=== PATIENT | male | born 1925 | race Caucasian/White ===

== ENCOUNTER 2016-10-13 08:00 | Outpatient (CLI) | payer OTHER | END 2016-10-13 23:59 | DX: N39.0 Urinary tract infection, site not specified (principal) ==

== ENCOUNTER 2016-10-28 12:00 | Outpatient (CLI) | payer MEDICARE, OTHER | END 2016-10-28 12:01 | DX: N39.0 Urinary tract infection, site not specified (principal); R97.20 Elevated prostate specific antigen [PSA]; N19 Unspecified kidney failure ==

== ENCOUNTER 2016-12-16 10:33 | Outpatient (CLI) | payer MEDICARE, OTHER | END 2016-12-16 10:34 | disposition home or self-care (01) | DX: N39.0 Urinary tract infection, site not specified (principal) ==

== ENCOUNTER 2017-03-05 11:04 | Day surgery (SDC) | payer MEDICARE, OTHER ==
[2017-03-05] MEDS ORDERED: PHENYLEPHRINE 2.5% OPHTH 2 ML DROPS ONE (11:17)
[2017-03-05] MEDS ORDERED: PHENYLEPHRINE 2.5% OPHTH 2 ML DROPS OPTH ONE (11:35)
[2017-03-05] MEDS ORDERED: KETOROLAC 0.45% OPHTH DROPS OPTH ONE (11:35)
[2017-03-05] MEDS ORDERED: CYCLOPENTOLATE 1% OPHTH DROPS 2 ML OPTH ONE (11:35)
[2017-03-05] MEDS ORDERED: PROPARACAINE 0.5% OPHTH DROPS 15 ML OPTH ONE ×2 (11:35→12:29)
[2017-03-05] MEDS ORDERED: LACTATED RINGERS 500 ML IV ONE (11:48)
[2017-03-05] MEDS ORDERED: EPINEPHrine 1 MG/ML AMP IVP ONE (12:26)
[2017-03-05] MEDS ORDERED: BRIMONIDINE 0.2% OPHTH DROPS 5 ML OPTH ONE (12:26)
[2017-03-05] MEDS ORDERED: CHONDR SULF/HYALURONATE SYRINGE IO ONE (12:29)
[2017-03-05] MEDS ORDERED: BSS/LIDOCAINE/EPINEPHRINE 1 ML SYRINGE IO ONE (12:29)
[2017-03-05] MEDS ORDERED: TIMOLOL 0.5% OPHTH DROPS OPTH ONE (12:29)
[2017-03-05] MEDS ORDERED: TRIAMCIN/MOXIFLOX/VANCO 1 ML VIAL IO ONE (12:30)
[2017-03-05] MEDS ORDERED: LIDOCAINE-MPF 2% 5 ML VIAL IM ONE (12:40)
[2017-03-05] MEDS ORDERED: MIDAZOLAM 2 MG/2 ML VIAL IVP ONE (12:40)
[2017-03-05] MEDS ORDERED: PROPOFOL 200 MG/20 ML VIAL IVP ONE (12:40)
[2017-03-05 13:37] VITALS: BP 121/86
--- NOTE | 2017-03-05 14:36 | OPERATIVE REPORT ---
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 Cataract surgery was performed on the left eye by Dr. Carranza on 02/20/2004. 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 Cataract surgery was performed on the left eye by Dr. Carranza on 02/20/2004. NAME OF PROCEDURE: Phacoemulsification with posterior chamber intraocular lens implant, right eye. SURGEON: Ishmael Moss MD ANESTHESIA: Monitored anesthesia care. COMPLICATIONS: None. OPERATIVE INDICATIONS: This is an 89-year-old man with progressive vision loss in the right eye due to 4+ nuclear sclerotic cataract. Best corrected visual acuity was 20/125 in the right eye. Indications for surgery were overall decrease in vision, difficulty seeing words on the computer screen, difficulty reading, difficulty seeing words and game scores on TV, difficulty seeing street signs, difficulty driving in low light or at night, difficulty driving at night because of headlights from other vehicles, difficulty with glare or bright lights in any situation, difficulty tracking a golf ball and decreased acuity with firearms. He was consented at length concerning the risks and benefits of cataract surgery after which he expressed a desire to proceed with surgery. OPERATIVE PROCEDURE: The patient was taken into OR #2 and placed under monitored anesthesia care. A surgical time-out was conducted confirming correct patient, correct procedure and correct surgical site. He was placed on the LenSx laser and his eye docked to the laser interface. The laser performed the phaco wounds and arcuate keratotomy incisions. He was then moved to the operating microscope, given topical anesthesia, and prepped and draped in the usual sterile fashion. The eye was entered at the 12 and 9 o'clock positions. Intracameral Shugarcaine was injected into the anterior chamber followed by Viscoat. A Malyugin ring was introduced in the anterior chamber and engaged the pupil at 4 points. Once the pupil was dilated, a curvilinear capsulorrhexis was created using capsulorrhexis forceps. The nucleus was hydrodissected and phacoemulsified. The cortex was evacuated using automated infusion aspiration. Provisc was injected into the capsular bag and a 15.0 diopter toric intraocular lens was inserted into the bag and rotated to axis 0.10. Once the lens was verified to be in good position, I/A was used to evacuate the viscoelastic materials from the capsular bag. Then more Viscoat was injected into the anterior chamber in order to remove the Malyugin ring from the pupil margin and out of the anterior chamber. I/A was then used again to remove viscoelastic materials from the anterior chamber. The eye was inflated to physiologic pressure using balanced salt solution and found to be water tight. Approximately 0.8 mL of a mixture of triamcinolone, moxifloxacin, and vancomycin was injected subconjunctivally in the superior quadrant for infection and inflammation prophylaxis. The wounds were then verified again to be watertight but I was unable to verify the position of the lens as the pupil had come down and covered the toric lens markers. The patient was taken from the operating room in good condition and given postoperative instructions. JOB #: [id number] EXT JOB #:[id number] SAI
== END 2017-03-05 11:05 | disposition home or self-care (01) ==
LOC: SDS 11:04
PROVIDERS: ATTEND Ophthalmology
PROC: 08RJ3JZ Replacement of Right Lens with Synthetic Substitute, Percutaneous Approach (ICD-10-PCS; principal; 2017-03-05 12:00)
DX: H25.11 Age-related nuclear cataract, right eye (principal); H21.81 Floppy iris syndrome; E03.9 Hypothyroidism, unspecified; I50.9 Heart failure, unspecified; I13.2 Hypertensive heart and chronic kidney disease with heart failure and with stage 5 chronic kidney disease, or end stage renal disease; N18.5 Chronic kidney disease, stage 5; N40.0 Benign prostatic hyperplasia without lower urinary tract symptoms; Z99.2 Dependence on renal dialysis; Z87.891 Personal history of nicotine dependence; Z79.82 Long term (current) use of aspirin
CPT/HCPCS: 66982; A9270; V2632

== ENCOUNTER 2017-06-24 08:00 | Outpatient (CLI) | payer MEDICARE, OTHER | END 2017-06-24 08:01 | disposition home or self-care (01) | LOC: LAB.R 08:00 | PROVIDERS: ATTEND Family Medicine | DX: N39.0 Urinary tract infection, site not specified (principal) | CPT/HCPCS: 87086 ==

== ENCOUNTER 2017-07-30 08:00 | Outpatient (CLI) | payer MEDICARE, OTHER | END 2017-07-30 08:01 | LOC: LAB.WCP 08:00 | PROVIDERS: ATTEND Family Medicine | DX: N39.0 Urinary tract infection, site not specified (principal) | CPT/HCPCS: 87086 ==